=== PATIENT | female | born 1990 | race Hispanic/Latino ===

== ENCOUNTER 2017-05-03 12:26 | Emergency (ER) | payer OTHER ==
[2017-05-03 12:43] VITALS: BP 127/79; PULSE 80; RESP 18; TEMP 98.6; O2SAT 100
[2017-05-03] MEDS ORDERED: Tdap Vaccine 0.5 ml Vial (10-64 yrs) IM ONE ×2 (12:50→13:23)
[2017-05-03] MEDS ORDERED: Absorbable Gelatin Sponge Size 12-7 TP STA (12:52)
--- NOTE | 2017-05-03 13:00 | ED PDOC ---
HPI: Wound Care - HPI Time Seen by Provider: 05/03/17 12:50 Chief Complaint (Nursing): Abnormal Skin Integrity Chief Complaint (Provider): Right Hand Laceration History Per: Patient History Of Present Illness: 27 year old female presents to the ED with a laceration to her right index finger. Patient states she was cutting on colette when her hand slipped causing her to injure her finger. Tetanus is not up to date. PMD: FAMILY PROVIDER,NO Exam Limitations: no limitations Onset/Duration Of Symptoms: Mins (x20 mins ago) Current Symptoms Are (Timing): Still Present Location Of Injury: Right: Hand (Index Finger) Severity: None Past Medical History Reviewed: Historical Data, Nursing Documentation, Vital Signs Vital Signs: Last Vital Signs Temp 98.6 F 05/03/17 12:41 Pulse 80 05/03/17 12:41 Resp 18 05/03/17 12:41 BP 127/79 05/03/17 12:41 Pulse Ox 100 05/03/17 12:41 - Medical History PMH: No Chronic Diseases - Surgical History Surgical History: No Surg Hx - Family History Family History: States: Unknown Family Hx - Living Arrangements Living Arrangements: With Family - Social History Current smoker - smoking cessation education provided: No Ex-Smoker (has not smoked in the last 12 months): No Alcohol: None Drugs: Denies - Immunization History Hx Tetanus Toxoid Vaccination: No - Home Medications Home Medications: Ambulatory Orders Medication Instructions Recorded Cephalexin [cephalexin] 500 mg PO QID #20 cap 05/03/17 - Allergies Allergies/Adverse Reactions: Allergies Allergy/AdvReac Type Severity Reaction Status Date / Time No Known Allergies Allergy Verified 05/03/17 12:41 Review of Systems Musculoskeletal: Positive for: Other (laceration to right index finger) Physical Exam - Reviewed Nursing Documentation Reviewed: Yes Vital Signs Reviewed: Yes - Physical Exam Appears: Positive for: Non-toxic, No Acute Distress Skin: Positive for: Normal Color, Warm, Dry. Negative for: Rash Eye Exam: Positive for: Normal appearance, EOMI, PERRL Extremity: Positive for: Normal ROM (Full ROM of right hand), Other (Evulsion to tip of right index finger able to flex and extend w/o difficulty. ). Negative for: Tenderness, Deformity, Swelling Neurologic/Psych: Positive for: Alert, Oriented - ECG O2 Sat by Pulse Oximetry: 100 (RA) Pulse Ox Interpretation: Normal Medical Decision Making Medical Decision Makin Initial Impression 27 y/o female presenting with evulsion to right index finger Initial Plan: * Adacel 0.5mL IM * Gelfoam size 12-7 1spg TP * Keflex 500mg PO * Reevaluation Documented by Lynn De Santiago acting as a scribe for Fernando Boyce PA-C. All medical record entries made by the Scribe were at my direction and personally dictated by me. I have reviewed the chart and agree that the record accurately reflects my personal performance of the history, physical exam, medical decision making, and the department course for this patient. I have also personally directed, reviewed, and agree with the discharge instructions and disposition. Disposition - Clinical Impression Clinical Impression: Fingertip avulsion - Patient ED Disposition Is Patient to be Admitted: No Counseled Patient/Family Regarding: Studies Performed - Disposition Disposition: Routine/Home Disposition Time: 13:13 Condition: FAIR Additional Instructions: return in 2 days or f/u with pmd/urgent care for wound check Prescriptions: Cephalexin [cephalexin] 500 mg PO QID #20 cap Instructions: Skin Avulsion (ED) Forms: [facility] ([place]) - POA Present On Arrival: None
== END 2017-05-03 13:38 | disposition home or self-care (01) ==
LOC: H.ER 12:26
DX: S61.210A Laceration without foreign body of right index finger without damage to nail, initial encounter (principal); W26.8XXA Contact with other sharp object(s), not elsewhere classified, initial encounter; Y92.89 Other specified places as the place of occurrence of the external cause

== ENCOUNTER 2017-05-20 18:53 | Emergency (ER) | payer OTHER ==
[2017-05-20 19:14] VITALS: PULSE 74; RESP 16; TEMP 98.7; O2SAT 99
--- NOTE | 2017-05-20 20:19 | ED PDOC ---
HPI: Wound Care - HPI Time Seen by Provider: 05/20/17 19:50 Chief Complaint (Nursing): Wound Check Chief Complaint (Provider): Wound Care History Per: Patient Additional Complaint(s): Anne is a 27 y/o female who was here two weeks ago after slicing her finger on a mandolin. Gelfoam was applied at the time of injury and patient states she was told by a hand specialist to leave the Gelfoam on for 2 weeks. Today makes 17 days that gel foam has been in place. Patient came to ED for assistance with removal of Gelfoam. She denies any active bleeding, drainage, fever or chills. PMD: None Past Medical History Reviewed: Historical Data, Nursing Documentation, Vital Signs Vital Signs: Last Vital Signs Temp 98.7 F 05/20/17 19:12 Pulse 74 05/20/17 19:12 Resp 16 05/20/17 19:12 BP Pulse Ox 99 05/20/17 19:12 - Medical History PMH: No Chronic Diseases - Surgical History Surgical History: No Surg Hx - Family History Family History: States: No Known Family Hx - Living Arrangements Living Arrangements: With Family - Social History Current smoker - smoking cessation education provided: No Alcohol: None Drugs: Denies - Immunization History Hx Tetanus Toxoid Vaccination: Yes - Home Medications Home Medications: Ambulatory Orders Medication Instructions Recorded Cephalexin [cephalexin] 500 mg PO QID #20 cap 05/03/17 - Allergies Allergies/Adverse Reactions: Allergies Allergy/AdvReac Type Severity Reaction Status Date / Time No Known Allergies Allergy Verified 05/03/17 12:41 Review of Systems ROS Statement: Except As Marked, All Systems Reviewed And Found Negative Skin: Positive for: Other (wounc check of right index finger laceration) Physical Exam - Reviewed Nursing Documentation Reviewed: Yes Vital Signs Reviewed: Yes - Physical Exam Appears: Positive for: Well, Non-toxic, No Acute Distress Head Exam: Positive for: ATRAUMATIC Skin: Positive for: Normal Color, Warm. Negative for: Rash Eye Exam: Positive for: Normal appearance Extremity: Positive for: Other (gel foam in place to distal aspect of right index finger, no acute infection) Neurologic/Psych: Positive for: Alert, Oriented - ECG O2 Sat by Pulse Oximetry: 99 (RA) Pulse Ox Interpretation: Normal Medical Decision Making Medical Decision Making: Time: 20:17 Initial Impression: 27 y/o female in need of wound care Initial Plan: --Soak off gel foam in saline Gel foam came off without difficulty,wound appears well healed. Patient given wound care instructions and was advised to follow up as needed with primary care doctor. Scribe Attestation: Documented by Fahad Shultz, acting as a scribe for Enriqueta Holguin PA-C Provider Scribe Attestation: All medical record entries made by the Scribe were at my direction and personally dictated by me. I have reviewed the chart and agree that the record accurately reflects my personal performance of the history, physical exam, medical decision making, and the department course for this patient. I have also personally directed, reviewed, and agree with the discharge instructions and disposition. Disposition - Clinical Impression Clinical Impression: Encounter for wound re-check - Patient ED Disposition Is Patient to be Admitted: No Counseled Patient/Family Regarding: Need For Followup - Disposition Referrals: [facility] [Outside] Disposition: Routine/Home Disposition Time: 20:47 Condition: STABLE Additional Instructions: Follow up as needed with primary care doctor. Instructions: Wound Care Forms: [employer] (T[place]isian)
[2017-05-20] MEDS ORDERED: Povidone Iodine Topical 10% Sol ONE (20:37)
== END 2017-05-20 21:01 | disposition home or self-care (01) ==
LOC: H.ER 18:53
DX: Z48.00 Encounter for change or removal of nonsurgical wound dressing (principal)